=== PATIENT | male | born 1955 | race Caucasian/White ===

== ENCOUNTER 2016-07-27 12:03 | Inpatient (IN) | payer OTHER ==
[2016-07-27 12:35] LABS: ABG CO2 ARTERIAL 24 mmol/L (21-27); ARTERIAL BLD GAS O2 SATURATION 96 % (95-98); ARTERIAL BLOOD GAS PCO2 38 mmHg (32-45); ARTERIAL PO2 84 mmHg (70-100); BICARBONATE 23 mmol/L (21-28); BLOOD GAS BASE EXCESS -1 mM/L (-/+3)
[2016-07-27] MEDS ORDERED: PRINIVIL20 M1 PO (12:47)
[2016-07-27] MEDS ORDERED: XANAX0.5 M1 PO (12:47)
[2016-07-27] MEDS ORDERED: SYNTHROID125 MC1 PO (12:47)
[2016-07-27] MEDS ORDERED: TESSALON PERLE100 M1 PO (12:47)
[2016-07-27] MEDS ORDERED: VENTOLIN HFA18 G2 INH (12:48)
[2016-07-27] MEDS ORDERED: SPIRIVA18 MC1 INH (12:48)
[2016-07-27] MEDS ORDERED: ZOLOFT50 M1 PO (12:48)
[2016-07-27] MEDS ORDERED: SYMBICORT 160-1 PUFF INH (12:48)
[2016-07-27] MEDS ORDERED: ALBUTEROL2.5 MG/3 M INH (12:49)
[2016-07-27 12:53] LABS: BASO % 0.1 % (0-2); HCT-HEMATOCRIT 48.7 % (34.0-49.0); HGB-HEMOGLOBIN 16.7 gm/dl (12.0-15.5); IMMATURE GRANULOCYTES ABSOLUTE 0.05 tho/cmm (0-0.03); IMMATURE GRANULOCYTES PERCENT 0.4 % (0-0.3); LYMPH % 4.4 % (20-45); LYMPH ABSOLUTE COUNT 0.6 tho/cmm (0.8-4.5); MCH (MEAN CORPUSCULAR HGB) 31.4 pg (28.0-32.0); MCHC MEAN CORPUSCULAR HGB CONC 34.3 % (32.0-36.0); MCV (MEAN CELL VOLUME) 91.5 fl (82.0-96.0); MEAN PLATELET VOLUME 8.4 cmc (9.4-12.4); MONO % 4.9 % (0-12); MONOCYTE ABSOLUTE COUNT 0.7 tho/cmm (0.0-1.2); NEUTROPHIL ABSOLUTE COUNT 12.4 tho/cmm (1.6-8.0); NEUTROPHIL-AUTOMATED 12.4 tho/cmm (1.6-8.0); NEUTROPHILS % 90.2 % (40-80); PLATELET COUNT 234 tho/cmm (150-450); RED BLOOD COUNT 5.32 mil/cmm (4.00-5.20); RED CELL DISTRIBUTION WIDTH 13.3 % (12.4-16.4); WHITE BLOOD COUNT 13.8 tho/cmm (4.0-10.0)
[2016-07-27 13:31] LABS: ANION GAP 16 mmol/L (0-20); BLOOD UREA NITROGEN 17 mg/dl (6-24); CALCIUM 9.6 mg/dl (8.5-10.5); CARBON DIOXIDE-VENOUS 23 mmol/L (22-32); CHLORIDE 99 mmol/l (96-110); GLUCOSE 149 mg/dL (70-110); POTASSIUM 4.2 mmol/L (3.7-5.1); SODIUM 134 mmol/L (135-145); eGFR VALUE FOR BLACK >90 mL/Min
[2016-07-27 21:02] LABS: ABG CO2 ARTERIAL 22 mmol/L (21-27); ARTERIAL BLD GAS O2 SATURATION 95 % (95-98); ARTERIAL BLOOD GAS PCO2 44 mmHg (32-45); ARTERIAL PO2 84 mmHg (70-100); BICARBONATE 21 mmol/L (21-28); BLOOD GAS BASE EXCESS -5 mM/L (-/+3); PH 7.31 Units (7.35-7.45)
[2016-07-27 21:58] LABS: ALB/GLOB RATIO 0.9 (0.8-2.0); BILIRUBIN,DIRECT 0.2 mg/dl (0.0-0.3); BILIRUBIN,INDIRECT 0.9 mg/dL (0.0-1.0); BILIRUBIN,TOTAL 1.1 mg/dl (0.0-1.5)
[2016-07-27 22:19] LABS: ABG CO2 ARTERIAL 24 mmol/L (21-27); ARTERIAL BLD GAS O2 SATURATION 99 % (95-98); ARTERIAL BLOOD GAS PCO2 43 mmHg (32-45); BICARBONATE 22 mmol/L (21-28); BLOOD GAS BASE EXCESS -3 mM/L (-/+3); PH 7.34 Units (7.35-7.45)
[2016-07-27 22:20] LABS: ARTERIAL PO2 213 mmHg (70-100)
[2016-07-28 05:04] LABS: BASO % 0.1 % (0-2); HCT-HEMATOCRIT 41.1 % (36.0-53.5); HGB-HEMOGLOBIN 13.7 gm/dl (13.5-17.0); IMMATURE GRANULOCYTES ABSOLUTE 0.02 tho/cmm (0-0.03); IMMATURE GRANULOCYTES PERCENT 0.2 % (0-0.3); LYMPH % 3.5 % (20-45); LYMPH ABSOLUTE COUNT 0.4 tho/cmm (0.8-4.5); MCHC MEAN CORPUSCULAR HGB CONC 33.3 % (32.0-36.0); MEAN PLATELET VOLUME 8.3 cmc (9.4-12.4); MONO % 1.6 % (0-12); MONOCYTE ABSOLUTE COUNT 0.2 tho/cmm (0.0-1.2); NEUTROPHIL ABSOLUTE COUNT 10.4 tho/cmm (1.6-8.0); NEUTROPHIL-AUTOMATED 10.4 tho/cmm (1.6-8.0); NEUTROPHILS % 94.6 % (40-80); PLATELET COUNT 207 tho/cmm (150-450); RED BLOOD COUNT 4.42 mil/cmm (4.40-5.70); RED CELL DISTRIBUTION WIDTH 13.5 % (12.4-16.4)
[2016-07-30 05:44] LABS: PLATELET COUNT 269 tho/cmm (150-450)
[2016-07-30] MEDS ORDERED: MUCINEX600 M1 PO (14:37)
[2016-07-30] MEDS ORDERED: FLONASE ALLERG9.9 ML (14:39)
[2016-07-30] MEDS ORDERED: CEFDINIR300 M1 PO (14:40)
[2016-07-30] MEDS ORDERED: PREDNISONE10 M1 PO (14:43)
== END 2016-07-30 16:49 | DRG 871 ==
LOC: EDMED 12:03 → EMR2 18:10 → PCUB 20:48
PROVIDERS: Emergency Medicine; Internal Medicine; ADMIT Hospitalist
PROC: 5A09357 Assistance with Respiratory Ventilation, Less than 24 Consecutive Hours, Continuous Positive Airway Pressure (ICD-10-PCS; principal; 2016-07-27)
DX: A41.9 Sepsis, unspecified organism (principal); J18.9 Pneumonia, unspecified organism; J96.01 Acute respiratory failure with hypoxia; J44.1 Chronic obstructive pulmonary disease with (acute) exacerbation; J44.0 Chronic obstructive pulmonary disease with (acute) lower respiratory infection; I10 Essential (primary) hypertension; E03.9 Hypothyroidism, unspecified; F32.9 Major depressive disorder, single episode, unspecified; F41.9 Anxiety disorder, unspecified; Z87.891 Personal history of nicotine dependence; E66.9 Obesity, unspecified; Z68.33 Body mass index [BMI] 33.0-33.9, adult
CPT/HCPCS: J0456; J0696; J1650; J1940; J1956; J2270; J2930; J7030; J7050; J7512; Q9967